=== PATIENT | female | born 1935 | race Asian ===

== ENCOUNTER 2018-03-23 22:41 | Observation (INO) | payer OTHER ==
--- NOTE | 2018-03-23 22:59 | PDOC ---
History of Present Illness - General History Source: Patient Exam Limitations: No Limitations - History of Present Illness Initial Comments: 03/24/18 01:39 The patient is a 82 year old female with a significant PMH of depression, acid reflux, hypertension, hyperlipidemia, and a cardiac cath (stent placed, on plavix and aspirin) who presents to the emergency department with pain since earlier today. The patient reports that she was at home earlier this evening when she was brushing her teeth and subsequently began to feel nauseous and began vomiting bright red blood . The patient states that she has been experiencing some constipation lately and had to place a finger in bottom for relief. The patient also reports some associated epigastric abdominal pain, a headache and lightheadedness. The patient denies any other symptoms or complaints. <Fabienne Muse - Last Filed: 03/24/18 01:39> <Rahel Light - Last Filed: 03/24/18 02:19> - General Chief Complaint: Pain, Acute Stated Complaint: VOMITING UP BLOOD Time Seen by Provider: 03/23/18 22:51 Past History <Fabienne Muse - Last Filed: 03/24/18 01:39> - Past Medical History Diabetes: Yes HTN: Yes - Surgical History Cardiac Surgery: Yes (cardiac catheterization) - Suicide/Smoking/Psychosocial Hx Smoking Status: No Smoking History: Never smoked Have you smoked in the past 12 months: No Number of Cigarettes Smoked Daily: 0 Information on smoking cessation initiated: No Hx Alcohol Use: No Drug/Substance Use Hx: No <Rahel Light - Last Filed: 03/24/18 02:19> - Past Medical History Allergies/Adverse Reactions: Allergies Allergy/AdvReac Type Severity Reaction Status Date / Time unknown cholesterol medicine AdvReac Uncoded 03/23/18 22:45 Home Medications: Ambulatory Orders Acetaminophen W/ Codeine #3 [Tylenol # 3] 1 combo PO Q4H #20 tablet 11/07/11 Aspirin [ASA -] 11/07/11 Calcium Carbonate [Oysco-500] 11/07/11 Clopidogrel Bisulfate [Plavix -] 11/07/11 Escitalopram Oxalate [Lexapro] 11/07/11 Esomeprazole Mag Trihydrate [Nexium] 11/07/11 Esomeprazole Mag Trihydrate [Nexium] 11/07/11 Ibandronate Sodium [Boniva] 11/07/11 Lidocaine 5% Patch [Lidoderm -] 11/07/11 Multivitamin [Multivitamins] 11/07/11 Nebivolol [Bystolic -] 11/07/11 [place]-3 Acid Ethyl Esters [Lovaza -] 1,000 mg PO TID 11/07/11 Pravastatin Na [Pravachol] 11/07/11 Vit C/Ascorbate Calcium,Sodium [Vitamin C 500 mg/15 ml Liquid] 11/07/11 Review of Systems - Review of Systems Able to Perform ROS?: Yes Comments:: 03/24/18 01:40 GENERAL/CONSTITUTIONAL: No fever or chills. No weakness. HEAD, EYES, EARS, NOSE AND THROAT: No change in vision. No ear pain or discharge. No sore throat. CARDIOVASCULAR: No chest pain or shortness of breath. RESPIRATORY: No cough, wheezing, or hemoptysis. GASTROINTESTINAL: (+)nausea, vomiting, constipation, epigastric pain. No diarrhea GENITOURINARY: No dysuria, frequency, or change in urination. MUSCULOSKELETAL: No joint or muscle swelling or pain. No neck or back pain. SKIN: No rash NEUROLOGIC: (+) headache, lightheadedness. No vertigo, loss of consciousness, or change in strength/sensation. ENDOCRINE: No increased thirst. No abnormal weight change. HEMATOLOGIC/LYMPHATIC: No anemia, easy bleeding, or history of blood clots. ALLERGIC/IMMUNOLOGIC: No hives or skin allergy. <Fabienne Muse - Last Filed: 03/24/18 01:39> *Physical Exam - Vital Signs Last Vital Signs Temp Pulse Resp BP Pulse Ox 97.6 F 95 H 18 142/84 98 03/23/18 22:45 03/23/18 22:45 03/23/18 22:45 03/23/18 22:45 03/23/18 22:45 - Physical Exam Comments: 03/24/18 01:40 GENERAL: (+)pale. Awake, alert, and fully oriented, in no acute distress HEAD: No signs of trauma EYES: PERRLA, EOMI, sclera anicteric, conjunctiva clear ENT: Auricles normal inspection, hearing grossly normal, nares patent, oropharynx clear without exudates. Moist mucosa NECK: Normal ROM, supple, no lymphadenopathy, JVD, or masses LUNGS: Breath sounds equal, clear to auscultation bilaterally. No wheezes, and no crackles HEART(+):tachy. Regular rhythm, normal S1 and S2, no murmurs, rubs or gallops ABDOMEN: Soft, nontender, normoactive bowel sounds. No guarding, no rebound. No masses EXTREMITIES: Normal range of motion, no edema. No clubbing or cyanosis. No cords, erythema, or tenderness NEUROLOGICAL: Cranial nerves II through XII grossly intact. Normal speech, normal gait SKIN: Warm, Dry, normal turgor, no rashes or lesions noted. <Fabienne Muse - Last Filed: 03/24/18 01:39> - Vital Signs Last Vital Signs Temp Pulse Resp BP Pulse Ox 97.6 F 95 H 18 142/84 98 03/23/18 22:45 03/23/18 22:45 03/23/18 22:45 03/23/18 22:45 03/23/18 22:45 <Rahel Light - Last Filed: 03/24/18 02:19> Moderate Sedation - Procedure Monitoring Vital Signs: Procedure Monitoring Vital Signs Temperature 97.6 F 03/23/18 22:45 Pulse Rate 95 H 03/23/18 22:45 Respiratory Rate 18 03/23/18 22:45 Blood Pressure 142/84 03/23/18 22:45 O2 Sat by Pulse Oximetry (%) 98 03/23/18 22:45 <Fabienne Muse - Last Filed: 03/24/18 01:39> - Procedure Monitoring Vital Signs: Procedure Monitoring Vital Signs Temperature 97.6 F 03/23/18 22:45 Pulse Rate 95 H 03/23/18 22:45 Respiratory Rate 18 03/23/18 22:45 Blood Pressure 142/84 03/23/18 22:45 O2 Sat by Pulse Oximetry (%) 98 03/23/18 22:45 <Rahel Light - Last Filed: 03/24/18 02:19> Heart Score/ECG Review - ECG Intrepretation Comment:: 03/24/18 00:49 sinus at 80, q waves inferior leads that are age indeterminate, t wave inversions III, no acute st/t wave findings <Rahel Light - Last Filed: 03/24/18 02:19> ED Treatment Course - LABORATORY CBC & Chemistry Diagram: 03/24/18 00:40 03/24/18 00:40 <Fabienne Muse - Last Filed: 03/24/18 01:39> - LABORATORY CBC & Chemistry Diagram: 03/24/18 00:40 03/24/18 00:40 <Rahel Light - Last Filed: 03/24/18 02:19> Medical Decision Making - Medical Decision Making 03/24/18 00:20 a/p: 82yo female with vomiting BRB tonight after brushing her teeth -no hx of GIB -recently constipated and using her finger to digitally disimpact herself at home, had some bleeding after the disimpaction from hemorrhoids recently, denies melena -denies nose bleeding -denies cp/sob -c/o lightheaded and dizziness, c/o epigastric pain -suspect gastric ulcer - UGIB -will send labs, stool for heme -ekg, cxr -will monitor and will need admission -on asa and plavix for a cardiac stent 03/24/18 02:[address] in obs for repeat h/h and gi eval of vomiting blood case discussed with ALVAREZHOSEUN who accepts the patient to service consult placed to GI - Dr. Reveles 03/24/18 02:18 no free air on cxr 03/24/18 02:19 mildly elevated lipase will keep NPO IVF hydraiton <Rahel Light - Last Filed: 03/24/18 02:19> *DC/Admit/Observation/Transfer - Attestations Scribe Attestion: 03/24/18 01:40 Documentation prepared by Fabienne Muse, acting as medical typist for Rahel Light DO, MD. <Fabienne Muse - Last Filed: 03/24/18 01:39> - Discharge Dispostion Decision to Admit order: Yes - Attestations Physician Attestion: 03/24/18 00:34 I, Dr. Rahel Light DO, attest that this document has been prepared under my direction and personally reviewed by me in its entirety. I further attest, that it accurately reflects all work, treatment, procedures and medical decision -making performed by me. <Rahel Light - Last Filed: 03/24/18 02:19> Diagnosis at time of Disposition: UGIB (upper gastrointestinal bleed) - Discharge Dispostion Condition at time of disposition: Guarded
[2018-03-23] MEDS ORDERED: SODIUM CHLORIDE 0.9% 1000 ML INFUS.BAG IV ONE (23:24)
[2018-03-23] MEDS ORDERED: ONDANSETRON 4 MG/2 ML VIAL IVPUSH ONE (23:24)
[2018-03-23] MEDS ORDERED: PANTOPRAZOLE SODIUM 40 MG VIAL IVPUSH ONE (23:24)
[2018-03-24] MEDS ORDERED: PANTOPRAZOLE SODIUM 40 MG/100 ML BAG IVPB ONE (00:20)
[2018-03-24 01:37] LABS: BASO % 0.2 % (0-2.0); EOS % 1.6 % (0-4.5); HEMATOCRIT 34.4 % (32.4-45.2); HEMOGLOBIN 12.4 GM/dL (10.7-15.3); MCH 33.6 pg (25.7-33.7); MCHC 35.9 g/dl (32.0-36.0); MEAN CELL VOLUME 93.6 fl (80-96); MEAN PLT VOLUME 8.5 fl (7.5-11.1); MONO % 8.7 % (3.8-10.2); NEUT % 65.5 % (42.8-82.8); PLATELET COUNT 116 K/MM3 (134-434); RBC 3.68 M/mm3 (3.60-5.2); RDW 13.4 % (11.6-15.6); WHITE BLOOD COUNT 5.3 K/mm3 (4.0-10.0)
[2018-03-24 01:48] LABS: INR 1.02 (0.83-1.09)
[2018-03-24 01:51] LABS: ACTIVATED PTT 28.7 SECONDS (25.2-36.5)
[2018-03-24 02:10] LABS: ALBUMIN 3.6 g/dl (3.4-5.0); ALK PHOS 77 U/L (45-117); ANION GAP 6 MMOL/L (8-16); BILIRUBIN,TOTAL 0.6 mg/dL (0.2-1); BLOOD UREA NITROGEN 11 mg/dL (7-18); CALCIUM 8.7 mg/dL (8.5-10.1); CHLORIDE 106 mmol/L (98-107); CO2 26 mmol/L (21-32); CREATININE 0.9 mg/dL (0.55-1.3); GLUCOSE,RANDOM 109 mg/dL (74-106); LIPASE 539 U/L (73-393); MAGNESIUM 2.3 mg/dL (1.8-2.4); SGOT/AST 32 U/L (15-37); SGPT/ALT 27 U/L (13-61); SODIUM 139 mmol/L (136-145); TOT PROT 6.9 g/dl (6.4-8.2)
--- NOTE | 2018-03-24 03:11 | HP ---
CHIEF COMPLAINT: Vomiting blood PCP: HISTORY OF PRESENT ILLNESS: Pt is an 82 y.o Vietnamese-[place] lady with a significant past medical history of HTN, NIDDM, HLD, who presented to [facility] after experiencing approximately 4 episodes of vomiting since earlier this am, last episode of vomiting was bloody. Pt was apparently brushing her teeth when the first episode of vomiting occurred. This has never happened before. Pt also endorsing midepigastric pain during this time as well. Has had a colonoscopy in the past but has never had an EGD. No h/o cirrhosis or heavy alcohol consumption. Denies LOC. Endorses headache and lightheadedness. Has been on Plavix and Aspirin due to stent placement. ER course was notable for: (1) stool occult negative (2) Rectal exam negative for obvious blood. Stool in rectal vault. (3) Recent Travel: PAST MEDICAL HISTORY: per hpi PAST SURGICAL HISTORY: Stent placement Social History: Smoking: denies Alcohol:denies Drugs: denies Family History: Allergies unknown cholesterol medicine Adverse Reaction (Uncoded 03/23/18 22:45) HOME MEDICATIONS: Home Medications Medication Instructions Recorded Aspirin [ASA -] 81 mg PO DAILY 03/24/18 Budesonide [Pulmicort 0.5 mg 1 amp NEB BID 03/24/18 Nebulizer -] Calcium Carbonate [Oysco-500] 500 mg PO DAILY 03/24/18 Clopidogrel Bisulfate [Clopidogrel] 75 mg PO DAILY 03/24/18 Diphenhydramine HCl 25 mg PO Q6H 03/24/18 Docusate Sodium 100 mg PO DAILY 03/24/18 Levothyroxine [Synthroid -] 50 mcg PO DAILY 03/24/18 Losartan Potassium 50 mg PO DAILY 03/24/18 Metformin HCl [Metformin HCl ER] 500 mg PO DAILY 03/24/18 Metoprolol Tartrate 25 mg PO BID 03/24/18 Mirabegron [Myrbetriq] 50 mg PO DAILY 03/24/18 Psyllium Seed [Reguloid] 426 gm PO DAILY PRN 03/24/18 Ranitidine HCl 300 mg PO 03/24/18 Rosuvastatin Calcium [Crestor] 5 mg PO HS 03/24/18 Vortioxetine Hydrobromide 10 mg PO 03/24/18 [Trintellix] REVIEW OF SYSTEMS CONSTITUTIONAL: Absent: fever, chills, diaphoresis, generalized weakness, malaise, loss of appetite, weight change HEENT: Absent: rhinorrhea, nasal congestion, throat pain, throat swelling, difficulty swallowing, mouth swelling, ear pain, eye pain, visual changes CARDIOVASCULAR: Absent: chest pain, syncope, palpitations, irregular heart rate, lightheadedness , peripheral edema RESPIRATORY: Absent: cough, shortness of breath, dyspnea with exertion, orthopnea, wheezing, stridor, hemoptysis GASTROINTESTINAL: PRESENT: abdominal pain, vomiting, constipation GENITOURINARY: Absent: dysuria, frequency, urgency, hesitancy, hematuria, flank pain, genital pain MUSCULOSKELETAL: Absent: myalgia, arthralgia, joint swelling, back pain, neck pain SKIN: Absent: rash, itching, pallor HEMATOLOGIC/IMMUNOLOGIC: Absent: easy bleeding, easy bruising, lymphadenopathy, frequent infections ENDOCRINE: Absent: unexplained weight gain, unexplained weight loss, heat intolerance, cold intolerance NEUROLOGIC: Absent: headache, focal weakness or paresthesias, dizziness, unsteady gait, seizure, mental status changes, bladder or bowel incontinence PSYCHIATRIC: Absent: anxiety, depression, suicidal or homicidal ideation, hallucinations. PHYSICAL EXAMINATION Vital Signs - 24 hr 03/23/18 22:45 Temperature 97.6 F Pulse Rate 95 H Respiratory 18 Rate Blood Pressure 142/84 O2 Sat by Pulse 98 Oximetry (%) GENERAL: Awake Alert pleasant. Vietnamese speaking. Medical student Kaela translated. HEAD: Normal with no signs of trauma. EYES: EOMI EARS, NOSE, THROAT: MMM NECK: Normal range of motion, supple without lymphadenopathy, JVD, or masses. LUNGS: Bibasilar crackles HEART: RRR ABDOMEN: Midepigastric tenderness MUSCULOSKELETAL: Normal range of motion at all joints. No bony deformities or tenderness. No CVA tenderness. UPPER EXTREMITIES: No CCE. LOWER EXTREMITIES: No CCE NEUROLOGICAL: no gross neuro deficits appreciated PSYCHIATRIC: Cooperative. Good eye contact. Appropriate mood and affect. SKIN: Warm, dry, normal turgor, no rashes or lesions noted, normal capillary refill. Laboratory Results - last 24 hr 03/24/18 03/24/18 03/24/18 00:40 00:40 00:40 WBC RBC Hgb Hct MCV MCH MCHC RDW Plt Count MPV Absolute Neuts (auto) Neutrophils % Lymphocytes % Monocytes % Eosinophils % Basophils % Nucleated RBC % PT with INR 12.00 INR 1.02 PTT (Actin FS) 28.7 Sodium 139 Potassium 4.0 Chloride 106 Carbon Dioxide 26 Anion Gap 6 L BUN 11 Creatinine 0.9 Creat Clearance w eGFR 59.80 Random Glucose 109 H Lactic Acid 1.5 Calcium 8.7 Magnesium 2.3 Total Bilirubin 0.6 AST 32 ALT 27 Alkaline Phosphatase 77 Creatine Kinase 71 Troponin I < 0.02 Total Protein 6.9 Albumin 3.6 Lipase 539 H Stool Occult Blood Blood Type Antibody Screen 03/24/18 03/24/18 03/24/18 00:40 00:40 00:55 WBC 5.3 RBC 3.68 Hgb 12.4 Hct 34.4 MCV 93.6 MCH 33.6 MCHC 35.9 RDW 13.4 Plt Count 116 L MPV 8.5 Absolute Neuts (auto) 3.5 Neutrophils % 65.5 Lymphocytes % 24.0 Monocytes % 8.7 Eosinophils % 1.6 Basophils % 0.2 Nucleated RBC % 0 PT with INR INR PTT (Actin FS) Sodium Potassium Chloride Carbon Dioxide Anion Gap BUN Creatinine Creat Clearance w eGFR Random Glucose Lactic Acid Calcium Magnesium Total Bilirubin AST ALT Alkaline Phosphatase Creatine Kinase Troponin I Total Protein Albumin Lipase Stool Occult Blood Negative Blood Type B POSITIVE Antibody Screen Negative ASSESSMENT/PLAN: Pt is an 82 y.o lady with a significant past medical history of HTN, NIDDM, HLD , CAD (1 stent placed 10 years ago?) who presented to [facility] after experiencing approximately 4 episodes of bloody vomiting since earlier this am. #Bloody vomitus 2/2 Deyanira Jiménez tear/Esophagitis? -CBC Q8H -Pt/INR -2 Large Bore IV's -NPO -Negative rectal exam x2 with negative FOBT performed by myself #HTN -withold oral meds in light of Gi bleed -IVPUSH Antihypertensives, i.e hydralazine prn #NIDDM -ISS ACHS #HLD Hold PO Meds at this time #CAD -States stent placed 10 years ago? Still on Plavix? - Hold AC in light of bleed FEN [id number] Monitor Electrolytes NPO DVT ppx: SCD's Dispo: Tele obs Visit type - Emergency Visit Emergency Visit: Yes ED Registration Date: 03/24/18 Care time: The patient presented to the Emergency Department on the above date and was hospitalized for further evaluation of their emergent condition. - New Patient This patient is new to me today: Yes Date on this admission: 03/24/18 - Critical Care Critical Care patient: No
--- NOTE | 2018-03-24 04:40 | PN ---
Teaching Attending Note Name of Resident: Cipriano Randle ATTENDING PHYSICIAN STATEMENT I saw and evaluated the patient. I reviewed the resident's note and discussed the case with the resident. I agree with the resident's findings and plan as documented. SUBJECTIVE: Patient seen and examined; she is an 82 y/o [place]oz[place] female presenting to the ER with a CC of throwing up blood x1. She had been having several episodes of vomiting/wretching at home and then noticed that the last one had bright red blood so she came to the ER. NO history of cirrhosis or alcohol abuse, no history of GIB or of abusing NSAIDs. She had a colonoscopy before but never had an EGD. This is her first time being admitted to this hospital. She has a PMH significant for HTN, NIDDM, HLD, Depression, CAD, GERD. She is still on DAPT with ASA and Plavix for a stent she tells me was placed ~10 years ago. She is hemodynamically stable and afebrile; rectal exam done by ER was negative. We re-examined her and there once again was no blood or melena in the rectal vault. She doesn't regularly see GI. Will admit her to the medicine service and monitor on the floor. 10 sys ROS done and negative aside from HPI PMH and PSH reviewed Social history negative for alcohol or drug abuse FH asked and noncontributory Medication list reviewed with resident OBJECTIVE: VS labs and imaging reviewed NAD, AAO, Swedish-speaking so medical student Kaela translated. Pleasant demeanor. RRR s1/2 no mgr Only very mild epigastric tenderness to palpation, ND, +BS Rectal exam negative for blood or melena No edema, +pedal pulses CN2-12 wnl, no fnd Pleasant mood, normal affect Labs reviewed; H/H wnl, mild thrombocytopenia to 110s, LFTs normal. Imaging reviewed; CXR taken but not uploaded? Cannot access image at this jucnture. Will followup. EKG pending NSR with no acute ST-T changes ASSESSMENT AND PLAN: Mrs. Gillette presents to the ER with a CC of vomiting x1 BRB. She is hemodynamically stable and afebrile with no further bleeding. Suspect UGIB 2/2 potential MW tear but also mindful that this could be esophagitis/gastritis, etc. No h/o cirrhosis but with low platelets must be mindful of possibility. 1) Hemetemesis x1 -Given her history of 3x vomiting regular bilious contents prior to the blood I am suspicious for MW tear. No evidence to indicate esophageal rupture. NEgative rectal exam x2 with negative FOBT proeformed by the ER argues against massive UGIB. Ddx, however, remains broad and we will have a high index of suspicion for all possibilities, especially life threatening ones. Given the mild thrombocytopenia we will keep in mind complications that could lend to this. -40 IV protonix BID, Strict NPO with DCing all nonessential PO meds, DC anticoagulation and SCDs only for DVT px. Consulting GI for endoscopy. Trending CBC to monitor Hb and plts q8H. Due to CAD would like transfusion goal at >8. -PRN zofran. 2) Nausea/Vomitting -PRN management; likely viral illness. Monitor for improvement -Given abdominal pain on exam in epigastrium and though lipase isn't at pancreatitis level but it is slightly elevated, and furthermore given the fact that we don't know what her liver anatomy looks like and she is thrombocytopenic , I can justify a noncontrast CT of the abdomen and pelvis. Pending. 3) HTN -Hold PO meds; resume when clinically stable 4) Hypothyroidism -Hold home meds; resume when clinically stable 5) CAD -Hold BB (watch for WD and consider if there is some unexplained tachy w/o further bleeding); hold ASA and Plavix. Consider followup with PCP to discuss ongoing need for plavix as she tells me that her stents were remote. Of course , it would be helpful to check her old records and confirm. 6) Thrombocytopenia -Trend; no h/o cirrhosis. No baseline CBCs to compare to. Check Hep C and HIV screen. No need to XF now. See if any incidental cirrhotic changes to liver when reviewing the CT. 7) GERD -Hold home famotidine. DC on PPI vs. old tx will be per GI DVT px: SCDs LALY WILLIAMSON@75 -PRN -NPO -OOB2Cw/BRP Full Code
[2018-03-24] MEDS: LACTATED RINGERS SOLUTION 1,000 ML/1,000 ML INFUS.BAG IV SCH ×2 (05:28→22:28)
[2018-03-24 06:49] LABS: BASO % 0.2 % (0-2.0); EOS % 2.1 % (0-4.5); HEMATOCRIT 32.2 % (32.4-45.2); HEMOGLOBIN 10.7 GM/dL (10.7-15.3); LYMPH % 32.8 % (8-40); MCH 31.6 pg (25.7-33.7); MCHC 33.3 g/dl (32.0-36.0); MEAN CELL VOLUME 94.8 fl (80-96); MEAN PLT VOLUME 8.3 fl (7.5-11.1); MONO % 9.8 % (3.8-10.2); NEUT % 55.1 % (42.8-82.8); PLATELET COUNT 85 K/MM3 (134-434); RDW 13.3 % (11.6-15.6); WHITE BLOOD COUNT 3.5 K/mm3 (4.0-10.0)
[2018-03-24 07:05] LABS: ALBUMIN 3.1 g/dl (3.4-5.0); ALK PHOS 65 U/L (45-117); ANION GAP 4 MMOL/L (8-16); BILIRUBIN,TOTAL 0.5 mg/dL (0.2-1); BLOOD UREA NITROGEN 10 mg/dL (7-18); CHLORIDE 109 mmol/L (98-107); CO2 27 mmol/L (21-32); CREATININE 0.9 mg/dL (0.55-1.3); GLUCOSE,RANDOM 88 mg/dL (74-106); INR 1.06 (0.83-1.09); MAGNESIUM 2.1 mg/dL (1.8-2.4); PHOSPHOROUS 2.6 mg/dL (2.5-4.9); POTASSIUM 4.1 mmol/L (3.5-5.1); PROTHROMBIN TIME (PATIENT) 12.5 SEC (9.7-13.0); SGOT/AST 26 U/L (15-37); SGPT/ALT 24 U/L (13-61); SODIUM 141 mmol/L (136-145); TOT PROT 5.9 g/dl (6.4-8.2)
[2018-03-24 07:36] LABS: URINE APPEARANCE CLEAR; URINE BILIRUBIN NEGATIVE (<2.0 mg/dL); URINE COLOR LTYELLOW; URINE GLUCOSE (UA) NEGATIVE (NEGATIVE); URINE KETONE NEGATIVE (NEGATIVE); URINE LEUK ESTERASE 1+ (NEGATIVE); URINE NITRITE NEGATIVE (NEGATIVE); URINE PROTEIN NEGATIVE (NEGATIVE); URINE UROBILINOGEN NEGATIVE mg/dL (0.2-1.0)
[2018-03-24 07:40] LABS: EPI CELLS RARE /HPF (FEW); URINE BACTERIA FEW /hpf (NONE SEEN); URINE MUCUS RARE
[2018-03-24 10:11] LABS: HEMATOCRIT 32.9 % (32.4-45.2); HEMOGLOBIN 11.7 GM/dL (10.7-15.3); MCH 33.5 pg (25.7-33.7); MCHC 35.5 g/dl (32.0-36.0); MEAN CELL VOLUME 94.1 fl (80-96); MEAN PLT VOLUME 7.8 fl (7.5-11.1); PLATELET COUNT 92 K/MM3 (134-434); RDW 13.4 % (11.6-15.6); WHITE BLOOD COUNT 2.8 K/mm3 (4.0-10.0)
[2018-03-24] MEDS: PANTOPRAZOLE SODIUM 40 MG VIAL IVPUSH SCH (10:18)
--- NOTE | 2018-03-24 11:18 | PN ---
Teaching Attending Note Name of Resident: Radu Callaway ATTENDING PHYSICIAN STATEMENT I saw and evaluated the patient. I reviewed the resident's note and discussed the case with the resident. I agree with the resident's findings and plan as documented. SUBJECTIVE: No fever or chills . No abd pain, reprots N/V since monday . had sen a table spoon full of blood last night . no recurence. no dysuria but no full emptying of her bladder lately. No SOB , no CP . she had a stent placed in 2009 and since then she has been on ASA and plavix reports EGD in [place] with a benign growth removed OBJECTIVE: NAD , dry MM CV: RRR. no MRG Lungs: CTAB Abd: sfot, Nd, NT, NL BS Ext : no edema ASSESSMENT AND PLAN: Very pleasant 82 y/o lady with h/ oCAD s/p stenting in 2009, HLP, HTN, DM , GERD , who presented with N/V x 5 days and hematemesis x 1 1- Hematemesis: small amount, did nto recur. possibly due to Deyanira Jiménez tear in setting of N/V . - start diet - IVF - IV PPI - monitor H&H . initial drop might be due to dilution with IVF - hold asa and plavix for now 2- N/V: likely gastritis. ? viral . or due to possible UTI - check flu swab - IVF - PPI - treat UTI - CT image reviewed, report pending 3- Possible UTI: distended bladder on CT scan, and incomplete emptying per patient, clinically might indicate a UTI - start empiric Abx - send urine cx - if cx neg , dc Abx 4- h/o CAD : stent card reviewed. 2009 placement. - hold ASA and plavix now. - resume BB - hold losartan 5- h/o Hypothyroidism: will confirm meds and resume synthroid dispo : observe for further bleed. GI consultation . if no EGD , and no further bleed , with resolution of sx then can dc when appropriate .
[2018-03-24 13:00] LABS: HEMATOCRIT 32.4 % (32.4-45.2); HEMOGLOBIN 11.5 GM/dL (10.7-15.3); MCH 33.5 pg (25.7-33.7); MCHC 35.4 g/dl (32.0-36.0); MEAN CELL VOLUME 94.5 fl (80-96); MEAN PLT VOLUME 8.3 fl (7.5-11.1); PLATELET COUNT 92 K/MM3 (134-434); RBC 3.42 M/mm3 (3.60-5.2); RDW 13.5 % (11.6-15.6); WHITE BLOOD COUNT 2.8 K/mm3 (4.0-10.0)
[2018-03-24] MEDS ORDERED: CEFTRIAXONE 1 GM in DEXTROSE 5%-WATER - 100 ML IVPB SCH (13:45)
[2018-03-24] MEDS ORDERED: CEFTRIAXONE 1 GM/50 ML BAG ONE (14:05)
--- NOTE | 2018-03-24 14:10 | CON.GI ---
Consult Consult Specialty:: GI Reason for Consultation:: Reported hematemesis - History of Present Illness History of Present Illness: 79 y.o. woman on dual antiplatelet therapy, reportedly had bloody vomitus after brushing her teeth yesterday. No prior h/o GI bleed. Had an EGD in [place] in the past, not clear when. CBC, BMP 03/24/18 12:55 03/24/18 06:20 - History Source History Provided By: Patient, Medical Record - Past Medical History Cardio/Vascular: Yes: CAD - Alcohol/Substance Use Hx Alcohol Use: No - Smoking History Smoking history: Never smoked Have you smoked in the past 12 months: No Aproximately how many cigarettes per day: 0 Home Medications - Allergies Allergies/Adverse Reactions: Allergies Allergy/AdvReac Type Severity Reaction Status Date / Time unknown cholesterol medicine AdvReac Uncoded 03/24/18 09:11 - Home Medications Home Medications: Ambulatory Orders Aspirin [ASA -] 81 mg PO DAILY 03/24/18 Budesonide [Pulmicort 0.5 mg Nebulizer -] 1 amp NEB BID 03/24/18 Calcium Carbonate [[place]-500] 500 mg PO DAILY 03/24/18 Clopidogrel Bisulfate [Clopidogrel] 75 mg PO DAILY 03/24/18 Diphenhydramine HCl 25 mg PO Q6H 03/24/18 Docusate Sodium 100 mg PO DAILY 03/24/18 Levothyroxine [Synthroid -] 50 mcg PO DAILY 03/24/18 Losartan Potassium 50 mg PO DAILY 03/24/18 Metformin HCl [Metformin HCl ER] 500 mg PO DAILY 03/24/18 Metoprolol Tartrate 25 mg PO BID 03/24/18 Mirabegron [Myrbetriq] 50 mg PO DAILY 03/24/18 Psyllium Seed [Reguloid] 426 gm PO DAILY PRN 03/24/18 Ranitidine HCl 300 mg PO 03/24/18 Rosuvastatin Calcium [Crestor] 5 mg PO HS 03/24/18 Vortioxetine Hydrobromide [Trintellix] 10 mg PO 03/24/18 Physical Exam-GI Vital Signs: Vital Signs Temperature 97.7 F 03/24/18 11:57 Pulse Rate 86 03/24/18 11:57 Respiratory Rate 17 03/24/18 11:57 Blood Pressure 152/88 03/24/18 11:57 O2 Sat by Pulse Oximetry (%) 96 03/24/18 11:57 Constitutional: Yes: Well Nourished Eyes: Yes: WNL HENT: Yes: WNL Neck: Yes: WNL Cardiovascular: Yes: Regular Rate and Rhythm Respiratory: Yes: WNL Gastrointestinal Inspection: Yes: WNL ...Auscultate: Yes: Normoactive Bowel Sounds ...Rectal Exam: Yes: Other (Was performed by house staff and was negative for occult blood.) Musculoskeletal: Yes: WNL Extremities: Yes: WNL Edema: No Neurological: Yes: WNL Labs: CBC, BMP 03/24/18 12:55 03/24/18 06:20 INR, PTT INR 1.06 (0.83-1.09) 03/24/18 06:20 Imaging - Results Cat Scan: Report Reviewed, Image Reviewed Assessment/Plan Doubt any significant GI bleed. Pt's Hgb remains in the normal range and her BUN did not rise, as would be expected in a person this age with any significant UGI blood loss. The blood may have come from her gums or throat. When I saw her in the ER she had just finished her entire lunch and denied any abdominal pain or recurrent vomiting. I do not see any acute GI issue. No objection to resuming her antiplatelet therapy if cardiology feels it is indicated; apparently her stent was placed a decade ago.
--- NOTE | 2018-03-24 17:11 | EKG ---
Test Reason : Blood Pressure : / mmHG Vent. Rate : 080 BPM Atrial Rate : 080 BPM P-R Int : 176 ms QRS Dur : 084 ms QT Int : 386 ms P-R-T Axes : 049 005 019 degrees QTc Int : 445 ms NORMAL SINUS RHYTHM INFERIOR INFARCT , AGE UNDETERMINED ABNORMAL ECG NO PREVIOUS ECGS AVAILABLE Confirmed by MD JERMAINE, CASSANDRA ([id number]) on 03/24/2018 5:11:29 PM Referred By: Confirmed By:CASSANDRA DEAN MD
--- NOTE | 2018-03-24 19:11 | PN ---
Physical Exam: SUBJECTIVE: Patient seen and examined. Pt. states that she vomited a spoonful of blood yesterday and had been vomiting once per day for the past 5 days. Pt. states that she had eaten some raw salted fish which her family members had also eaten (they did not become sick) and became sick later that evening. OBJECTIVE: Vital Signs Period Temp Pulse Resp BP Sys/Bragg Pulse Ox Last 24 Hr 97.6 F-98.1 F 79-95 17-18 133-152/74-88 96-98 GENERAL: The patient is awake, alert, and fully oriented, in no acute distress. HEAD: Normal with no signs of trauma. EYES: PERRL, sclera anicteric, conjunctiva clear. No ptosis. ENT: Ears normal, nares patent, oropharynx clear without exudates, moist mucous membranes. LUNGS: Breath sounds equal, clear to auscultation bilaterally, no wheezes, no crackles, no accessory muscle use. HEART: Regular rate and rhythm, S1, S2 without murmur, rub or gallop. ABDOMEN: Soft, nontender, nondistended, normoactive bowel sounds, no guarding, no rebound, no hepatosplenomegaly, no masses. EXTREMITIES: 2+ dorsal pedal pulses, warm, well-perfused, no edema. NEUROLOGICAL: Normal speech, gait not observed. PSYCH: Normal mood, normal affect. SKIN: Warm, dry, normal turgor, no rashes or lesions noted Laboratory Results - last 24 hr 03/24/18 03/24/18 03/24/18 00:40 00:40 00:40 WBC RBC Hgb Hct MCV MCH MCHC RDW Plt Count MPV Absolute Neuts (auto) Neutrophils % Lymphocytes % Monocytes % Eosinophils % Basophils % Nucleated RBC % PT with INR 12.00 INR 1.02 PTT (Actin FS) 28.7 Sodium 139 Potassium 4.0 Chloride 106 Carbon Dioxide 26 Anion Gap 6 L BUN 11 Creatinine 0.9 Creat Clearance w eGFR 59.80 POC Glucometer Random Glucose 109 H Lactic Acid 1.5 Calcium 8.7 Phosphorus Magnesium 2.3 Total Bilirubin 0.6 AST 32 ALT 27 Alkaline Phosphatase 77 Creatine Kinase 71 Troponin I < 0.02 Total Protein 6.9 Albumin 3.6 Lipase 539 H Urine Color Urine Appearance Urine pH Ur Specific [place] Urine Protein Urine Glucose (UA) Urine Ketones Urine Blood Urine Nitrite Urine Bilirubin Urine Urobilinogen Ur Leukocyte Esterase Urine WBC (Auto) Urine RBC (Auto) Ur Epithelial Cells Urine Bacteria Urine Mucus Stool Occult Blood Influenza A (Rapid) Influenza B (Rapid) Blood Type Antibody Screen 03/24/18 03/24/18 03/24/18 00:40 00:40 00:55 WBC 5.3 RBC 3.68 Hgb 12.4 Hct 34.4 MCV 93.6 MCH 33.6 MCHC 35.9 RDW 13.4 Plt Count 116 L MPV 8.5 Absolute Neuts (auto) 3.5 Neutrophils % 65.5 Lymphocytes % 24.0 Monocytes % 8.7 Eosinophils % 1.6 Basophils % 0.2 Nucleated RBC % 0 PT with INR INR PTT (Actin FS) Sodium Potassium Chloride Carbon Dioxide Anion Gap BUN Creatinine Creat Clearance w eGFR POC Glucometer Random Glucose Lactic Acid Calcium Phosphorus Magnesium Total Bilirubin AST ALT Alkaline Phosphatase Creatine Kinase Troponin I Total Protein Albumin Lipase Urine Color Urine Appearance Urine pH Ur Specific [place] Urine Protein Urine Glucose (UA) Urine Ketones Urine Blood Urine Nitrite Urine Bilirubin Urine Urobilinogen Ur Leukocyte Esterase Urine WBC (Auto) Urine RBC (Auto) Ur Epithelial Cells Urine Bacteria Urine Mucus Stool Occult Blood Negative Influenza A (Rapid) Influenza B (Rapid) Blood Type B POSITIVE Antibody Screen Negative 03/24/18 03/24/18 03/24/18 06:20 06:20 06:20 WBC 3.5 L RBC 3.40 L Hgb 10.7 Hct 32.2 L MCV 94.8 MCH 31.6 MCHC 33.3 RDW 13.3 Plt Count 85 L D MPV 8.3 Absolute Neuts (auto) 1.9 Neutrophils % 55.1 Lymphocytes % 32.8 D Monocytes % 9.8 Eosinophils % 2.1 Basophils % 0.2 Nucleated RBC % 0 PT with INR 12.50 INR 1.06 PTT (Actin FS) 29.0 Sodium 141 Potassium 4.1 Chloride 109 H Carbon Dioxide 27 Anion Gap 4 L BUN 10 Creatinine 0.9 Creat Clearance w eGFR 59.80 POC Glucometer Random Glucose 88 Lactic Acid Calcium 8.0 L Phosphorus 2.6 Magnesium 2.1 Total Bilirubin 0.5 AST 26 ALT 24 Alkaline Phosphatase 65 Creatine Kinase Troponin I Total Protein 5.9 L Albumin 3.1 L Lipase Urine Color Urine Appearance Urine pH Ur Specific [place] Urine Protein Urine Glucose (UA) Urine Ketones Urine Blood Urine Nitrite Urine Bilirubin Urine Urobilinogen Ur Leukocyte Esterase Urine WBC (Auto) Urine RBC (Auto) Ur Epithelial Cells Urine Bacteria Urine Mucus Stool Occult Blood Influenza A (Rapid) Influenza B (Rapid) Blood Type Antibody Screen 03/24/18 03/24/18 03/24/18 06:40 10:00 10:00 WBC 2.8 L RBC 3.50 L Hgb 11.7 Hct 32.9 MCV 94.1 MCH 33.5 MCHC 35.5 RDW 13.4 Plt Count 92 L MPV 7.8 Absolute Neuts (auto) Neutrophils % Lymphocytes % Monocytes % Eosinophils % Basophils % Nucleated RBC % PT with INR INR PTT (Actin FS) Sodium Potassium Chloride Carbon Dioxide Anion Gap BUN Creatinine Creat Clearance w eGFR POC Glucometer Random Glucose Lactic Acid Calcium Phosphorus Magnesium Total Bilirubin AST ALT Alkaline Phosphatase Creatine Kinase Troponin I Total Protein Albumin Lipase Urine Color Ltyellow Urine Appearance Clear Urine pH 7.0 Ur Specific [place] 1.009 L Urine Protein Negative Urine Glucose (UA) Negative Urine Ketones Negative Urine Blood Negative Urine Nitrite Negative Urine Bilirubin Negative Urine Urobilinogen Negative Ur Leukocyte Esterase 1+ H Urine WBC (Auto) 25 Urine RBC (Auto) <1 Ur Epithelial Cells Rare Urine Bacteria Few Urine Mucus Rare Stool Occult Blood Influenza A (Rapid) Influenza B (Rapid) Blood Type B POSITIVE Antibody Screen 03/24/18 03/24/18 03/24/18 11:37 12:39 12:55 WBC 2.8 L RBC 3.42 L Hgb 11.5 Hct 32.4 MCV 94.5 MCH 33.5 MCHC 35.4 RDW 13.5 Plt Count 92 L MPV 8.3 Absolute Neuts (auto) Neutrophils % Lymphocytes % Monocytes % Eosinophils % Basophils % Nucleated RBC % PT with INR INR PTT (Actin FS) Sodium Potassium Chloride Carbon Dioxide Anion Gap BUN Creatinine Creat Clearance w eGFR POC Glucometer [id number] Random Glucose Lactic Acid Calcium Phosphorus Magnesium Total Bilirubin AST ALT Alkaline Phosphatase Creatine Kinase Troponin I Total Protein Albumin Lipase Urine Color Urine Appearance Urine pH Ur Specific [place] Urine Protein Urine Glucose (UA) Urine Ketones Urine Blood Urine Nitrite Urine Bilirubin Urine Urobilinogen Ur Leukocyte Esterase Urine WBC (Auto) Urine RBC (Auto) Ur Epithelial Cells Urine Bacteria Urine Mucus Stool Occult Blood Influenza A (Rapid) Negative Influenza B (Rapid) Negative Blood Type Antibody Screen 03/24/18 17:15 WBC RBC Hgb Hct MCV MCH MCHC RDW Plt Count MPV Absolute Neuts (auto) Neutrophils % Lymphocytes % Monocytes % Eosinophils % Basophils % Nucleated RBC % PT with INR INR PTT (Actin FS) Sodium Potassium Chloride Carbon Dioxide Anion Gap BUN Creatinine Creat Clearance w eGFR POC Glucometer [phone] Random Glucose Lactic Acid Calcium Phosphorus Magnesium Total Bilirubin AST ALT Alkaline Phosphatase Creatine Kinase Troponin I Total Protein Albumin Lipase Urine Color Urine Appearance Urine pH Ur Specific [place] Urine Protein Urine Glucose (UA) Urine Ketones Urine Blood Urine Nitrite Urine Bilirubin Urine Urobilinogen Ur Leukocyte Esterase Urine WBC (Auto) Urine RBC (Auto) Ur Epithelial Cells Urine Bacteria Urine Mucus Stool Occult Blood Influenza A (Rapid) Influenza B (Rapid) Blood Type Antibody Screen Active Medications Current Medications Lactated Ringer's (Lactated Ringers Solution) 1,000 ml in 1,000 mls @ 75 mls/ hr IV ASDIR LINA Last Admin: 03/24/18 05:28 Dose: 75 mls/hr Ceftriaxone Sodium 1 gm/ (Dextrose) 100 mls @ 200 mls/hr IVPB DAILY [facility]; Protocol Last Admin: 03/24/18 14:11 Dose: 200 mls/hr Ondansetron HCl (Zofran Injection) 4 mg IVPUSH ONCE ONE Stop: 03/23/18 23:25 Last Admin: 03/24/18 00:50 Dose: 4 mg Pantoprazole Sodium (Protonix Iv) 40 mg IVPUSH ONCE ONE Stop: 03/23/18 23:25 Last Admin: 03/24/18 00:50 Dose: 40 mg Pantoprazole Sodium (Protonix Iv) 40 mg IVPUSH DAILY [facility] Last Admin: 03/24/18 10:18 Dose: 40 mg Sodium Chloride (Normal Saline -) 500 ml IV ONCE ONE Stop: 03/23/18 23:25 Last Admin: 03/24/18 00:49 Dose: 500 ml Home Medications Medication Instructions Recorded Aspirin [ASA -] 81 mg PO DAILY 03/24/18 Budesonide [Pulmicort 0.5 mg 1 amp NEB BID 03/24/18 Nebulizer -] Calcium Carbonate [Oysco-500] 500 mg PO DAILY 03/24/18 Clopidogrel Bisulfate [Clopidogrel] 75 mg PO DAILY 03/24/18 Diphenhydramine HCl 25 mg PO Q6H 03/24/18 Docusate Sodium 100 mg PO DAILY 03/24/18 Levothyroxine [Synthroid -] 50 mcg PO DAILY 03/24/18 Losartan Potassium 50 mg PO DAILY 03/24/18 Metformin HCl [Metformin HCl ER] 500 mg PO DAILY 03/24/18 Metoprolol Tartrate 25 mg PO BID 03/24/18 Mirabegron [Myrbetriq] 50 mg PO DAILY 03/24/18 Psyllium Seed [Reguloid] 426 gm PO DAILY PRN 03/24/18 Ranitidine HCl 300 mg PO 03/24/18 Rosuvastatin Calcium [Crestor] 5 mg PO HS 03/24/18 Vortioxetine Hydrobromide 10 mg PO 03/24/18 [Trintellix] ASSESSMENT/PLAN: Pt is an 82 y.o lady with a significant past medical history of HTN, NIDDM, HLD , CAD (1 stent placed 10 years ago?) who presented to [facility] after experiencing approximately an episode of bloody vomiting yesterday morning. #Bloody vomitus 2/2 Deyanira Jiménez tear vs. Esophagitis -Negative rectal exam x2 with negative FOBT -No more occurrences of hematemesis -GI Consult (Dr. Patterson) appreciated: No acute GI problem at this time. -CXR: tracheal slightly deviated to right- may benefit from outpatient follow up with GI for EGD. Pt. does endorse some difficulty swallowing. #HTN -Resume home medications in AM as Pt.'s BP has been rising #NIDDM -ISS ACHS -BGM ACHS -Hold PO anti-hyperglycemics #HLD -Hold PO Meds at this time #CAD -Holding Plavix and ASA in light of GI Bleed -f/u with Pharmacy and PCP why Pt. is still on Plavix and ASA after stent placement in 2009 FEN -Encourage PO intake -Monitor Electrolytes -Soft Diet DVT ppx: -SCD's Dispo: Tele obs Visit type - Emergency Visit Emergency Visit: Yes ED Registration Date: 03/24/18 Care time: The patient presented to the Emergency Department on the above date and was hospitalized for further evaluation of their emergent condition. - New Patient This patient is new to me today: Yes Date on this admission: 03/24/18 - Critical Care Critical Care patient: No - Discharge Referral Referred to [facility] No
[2018-03-24 20:49] VITALS: BMI 26.5
[2018-03-24] MEDS ORDERED: CEFTRIAXONE 1 GM in DEXTROSE 5%-WATER - 50 ML IVPB SCH (21:37)
[2018-03-24] MEDS: METOPROLOL TARTRATE 25 MG TABLET (FP) PO SCH (22:21)
[2018-03-25] MEDS: LACTATED RINGERS SOLUTION 1,000 ML/1,000 ML INFUS.BAG IV SCH ×2 (04:30→09:17)
[2018-03-25] MEDS ORDERED: LEVOTHYROXINE NA 50 MCG TABLET (FP) PO SCH (07:00)
[2018-03-25 07:58] LABS: BASO % 0.4 % (0-2.0); EOS % 3.2 % (0-4.5); HEMATOCRIT 35.1 % (32.4-45.2); HEMOGLOBIN 11.7 GM/dL (10.7-15.3); LYMPH % 33.2 % (8-40); MCH 31.6 pg (25.7-33.7); MCHC 33.3 g/dl (32.0-36.0); MEAN CELL VOLUME 94.8 fl (80-96); MEAN PLT VOLUME 8.4 fl (7.5-11.1); MONO % 9.6 % (3.8-10.2); NEUT % 53.6 % (42.8-82.8); PLATELET COUNT 104 K/MM3 (134-434); RDW 12.8 % (11.6-15.6); WHITE BLOOD COUNT 3.4 K/mm3 (4.0-10.0)
[2018-03-25] MEDS ORDERED: cefTRIAXone SODIUM 1 GM VIAL ONE (09:09)
[2018-03-25] MEDS ORDERED: DEXTROSE 5%-WATER - 50 ML IVPB ONE (09:10)
[2018-03-25] MEDS: PANTOPRAZOLE SODIUM 40 MG VIAL IVPUSH SCH (09:20)
[2018-03-25] MEDS: METOPROLOL TARTRATE 25 MG TABLET (FP) PO SCH (09:21)
[2018-03-25] MEDS ORDERED: LOSARTAN POTASSIUM 50 MG TABLET (FP) PO SCH (10:00)
[2018-03-25] MEDS ORDERED: CALCIUM (OYSTER SHELL) 500 MG TABLET (FP) PO SCH (10:00)
[2018-03-25] MEDS ORDERED: DOCUSATE SODIUM 100 MG CAPSULE (FP) PO SCH (10:00)
[2018-03-25] MEDS ORDERED: PATIENT'S OWN MEDICATION (NON-FORMULARY) (Mirabegron [Myrbetriq] 50 MG) PO SCH (10:00)
[2018-03-25 10:38] VITALS: BP 140/70; PULSE 64; TEMP 98
--- NOTE | 2018-03-25 11:49 | PN ---
Progress Note (short form) - Note Progress Note: Subjective: spoke to patient through full time staff interpreter [id number] no fever or chills, no abd pain , no N/V, no diarrhea, no bleeding Objective: Last Vital Signs Temp Pulse Resp BP Pulse Ox 98.0 F 64 18 140/70 94 L 03/25/18 10:37 03/25/18 10:37 03/25/18 10:37 03/25/18 10:37 03/25/18 04:00 Laboratory Results - last 24 hr 03/24/18 03/24/18 03/24/18 10:00 11:37 12:39 WBC RBC Hgb Hct MCV MCH MCHC RDW Plt Count MPV Absolute Neuts (auto) Neutrophils % Lymphocytes % Monocytes % Eosinophils % Basophils % Nucleated RBC % POC Glucometer 140.10110 Influenza A (Rapid) Negative Influenza B (Rapid) Negative Blood Type B POSITIVE 03/24/18 03/24/18 03/25/18 12:55 17:15 06:30 WBC 2.8 L 3.4 L RBC 3.42 L 3.70 Hgb 11.5 11.7 Hct 32.4 35.1 MCV 94.5 94.8 MCH 33.5 31.6 MCHC 35.4 33.3 RDW 13.5 12.8 Plt Count 92 L 104 L MPV 8.3 8.4 Absolute Neuts (auto) 1.8 Neutrophils % 53.6 Lymphocytes % 33.2 Monocytes % 9.6 Eosinophils % 3.2 Basophils % 0.4 Nucleated RBC % 0 POC Glucometer [phone] Influenza A (Rapid) Influenza B (Rapid) Blood Type NAD , MMM CV: RRR. no MRG Lungs: CTAB Abd:soft, NT, ND , ND , NL BS Ext : no edema ASSESSMENT AND PLAN: Very pleasant 82 y/o lady with h/ oCAD s/p stenting in 2009, HLP, HTN, DM , GERD , who presented with N/V x 5 days and hematemesis x 1 1- Hematemesis: small amount. No recurrence . ? Deyanira Jiménez tear - ranitidine - GI f/u as out pt - resume anti-plt 2- N/V: likely gastritis. ? viral . or due to UTI - flu swab neg - ranitidine after dc - CT with no etioogy. lung base with infiltrates, but nno clinical signs of PNA. will not treat . need f/u imaging as out pt 3- UTI: urine cx with group D strep. will follow final ID and sensitivity . day 2 of ceftriaxone. change to keflex for one more day 4- h/o CAD : stent card reviewed. 2009 placement. - resume ASA and plavix now. 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 message left for grand son to call back. Visit type - Emergency Visit Emergency Visit: Yes ED Registration Date: 03/24/18 Care time: The patient presented to the Emergency Department on the above date and was hospitalized for further evaluation of their emergent condition. - New Patient This patient is new to me today: No - Critical Care Critical Care patient: No
[2018-03-25] MEDS ORDERED: ASPIRIN COATED 81 MG TABLET.EC PO SCH (12:30)
[2018-03-25] MEDS ORDERED: CLOPIDOGREL BISULFATE 75 MG TABLET (FP) PO SCH (12:30)
== END 2018-03-25 13:45 | disposition home or self-care (01) ==
LOC: JER 22:41 → JERBED 03-24 00:34 → UNDOADMOB 03-24 02:22 → J6S 03-24 18:51
PROVIDERS: ADMIT Internal Medicine; ATTEND Internal Medicine
PROC: 3E03329 Introduction of Other Anti-infective into Peripheral Vein, Percutaneous Approach (ICD-10-PCS; principal; 2018-03-24)
PROC: 3E03329 Introduction of Other Anti-infective into Peripheral Vein, Percutaneous Approach (ICD-10-PCS; 2018-03-24)
PROC: 3E033GC Introduction of Other Therapeutic Substance into Peripheral Vein, Percutaneous Approach (ICD-10-PCS; 2018-03-24)
PROC: 3E033GC Introduction of Other Therapeutic Substance into Peripheral Vein, Percutaneous Approach (ICD-10-PCS; 2018-03-24)
PROC: 3E033GC Introduction of Other Therapeutic Substance into Peripheral Vein, Percutaneous Approach (ICD-10-PCS; 2018-03-24)
DX: K92.2 Gastrointestinal hemorrhage, unspecified (principal); I25.10 Atherosclerotic heart disease of native coronary artery without angina pectoris; I10 Essential (primary) hypertension; Z95.5 Presence of coronary angioplasty implant and graft; Z79.01 Long term (current) use of anticoagulants; Z79.82 Long term (current) use of aspirin; E03.9 Hypothyroidism, unspecified; E11.9 Type 2 diabetes mellitus without complications; Z79.84 Long term (current) use of oral hypoglycemic drugs; D69.6 Thrombocytopenia, unspecified; N39.0 Urinary tract infection, site not specified; B95.2 Enterococcus as the cause of diseases classified elsewhere
CPT/HCPCS: 36415; 71045-TC-FY; 74176-TC; 80053; 81003; 81015; 82272; 82550; 82962; 83605; 83690; 83735; 84100; 84484; 85025; 85027; 85610; 85730; 86850; 86900; 86901; 87086; 87186; 87804; 93005; 93010; 96365; 96366; 96375; 96376; 99285-25; G0378; J7030